=== PATIENT | male | born 1945 | race Caucasian/White ===

== ENCOUNTER 2016-08-03 17:51 | Emergency (ER) | payer MEDICARE, OTHER ==
[~2016-08-03] VITALS: Ht 175.3 cm; Wt 68.9 kg
--- NOTE | 2016-08-03 18:32 | NUR ---
DR BLISS AT THE BEDSIDE FOR EVAL AND EXAM.
--- NOTE | 2016-08-03 19:50 | NUR ---
Patient discharged to home in stable conditon. Written and verbal after care instructions given. Patient verbalizes understanding of instructions.
== END 2016-08-03 19:51 | disposition home or self-care (01) ==
LOC: ER 17:51
DX: S06.0X0A Concussion without loss of consciousness, initial encounter (principal); S20.219A Contusion of unspecified front wall of thorax, initial encounter; W21.07XA Struck by softball, initial encounter; Y93.64 Activity, baseball; Y92.9 Unspecified place or not applicable; Y99.9 Unspecified external cause status
CPT/HCPCS: 70450; 71101; A4217; A4663

== ENCOUNTER 2018-06-21 18:14 | Emergency (ER) | payer MEDICARE, OTHER ==
[~2018-06-21] VITALS: Ht 175.3 cm; Wt 65.8 kg
--- NOTE | 2018-06-21 19:07 | NUR ---
Received report from Liz, assumed care of pt., pt. resting in bed, bed in low position, NAD
[2018-06-21] MEDS ORDERED: AMOXICILLIN-CLAVUL 875-125MG TABLET PO ONE (19:30)
[2018-06-21] MEDS ORDERED: AMOXICILLIN-CLAVUL 875-125MG TABLET ONE (19:51)
--- NOTE | 2018-06-21 20:28 | NUR ---
Cleaned wound w/ NS, prepped w/ Benzoin tincture, steristrips applied, wrapped in kerlex and conforming bandage, CMS intact, instructions given for wound care,
--- NOTE | 2018-06-21 20:38 | NUR ---
Patient discharged to home in stable conditon. Written and verbal after care instructions given. Patient verbalizes understanding of instructions. Animal bite form completed and placed in chart, pt. discharged per MD order, d/c papers signed, all belongings w/ pt., ID band removed, ambulated off unit w/ steady gait, instructed not to drive, NAD
[2018-06-24] MEDS ORDERED: AMOX-427 PO (08:46)
[2018-06-24] MEDS ORDERED: SULF1TAB48 PO (08:46)
== END 2018-06-21 20:42 | disposition home or self-care (01) ==
LOC: ER 18:19
DX: S51.851A Open bite of right forearm, initial encounter (principal); W54.0XXA Bitten by dog, initial encounter; Y93.89 Activity, other specified; Y92.89 Other specified places as the place of occurrence of the external cause; Y99.8 Other external cause status
CPT/HCPCS: 73090; A4217; A4663

== ENCOUNTER 2018-06-23 07:30 | Emergency (ER) | payer MEDICARE, OTHER ==
[~2018-06-23] VITALS: Ht 175.3 cm; Wt 65.8 kg
[2018-06-23] MEDS ORDERED: METF-440 PO (07:42)
[2018-06-23] MEDS ORDERED: ATOR20TA PO (07:42)
[2018-06-23] MEDS ORDERED: VANCOMYCIN IV 1,000 MG in IV DEXTROSE 5% 250 ML IV ONE (08:00)
[2018-06-23] MEDS ORDERED: PIPERACILLIN SODIUM/TAZOBACTAM 3.375 G in IV DEXTROSE 5% 50 ML IV ONE (08:00)
[2018-06-23] MEDS ORDERED: PIPERACILLIN/TAZOBACTAM/D5W 50 ML IV ONE (08:03)
[2018-06-23] MEDS ORDERED: VANCOMYCIN IV 200 ML ONE (08:03)
--- NOTE | 2018-06-23 10:12 | NUR ---
IV removed. Catheter intact and site benign. Pressure and 4x4 gauze applied to site. No bleeding noted.
[2018-06-23 10:13] VITALS: BP 100/61
--- NOTE | 2018-06-23 10:14 | NUR ---
Patient discharged to home in stable conditon. Written and verbal after care instructions given. Patient verbalizes understanding of instructions.
[2018-06-24] MEDS ORDERED: SULF1TAB48 PO (08:46)
[2018-06-24] MEDS ORDERED: AMOX-427 PO (08:46)
== END 2018-06-23 10:14 | disposition home or self-care (01) ==
LOC: ER 07:30
DX: S50.861D Insect bite (nonvenomous) of right forearm, subsequent encounter (principal); L08.9 Local infection of the skin and subcutaneous tissue, unspecified; Z79.899 Other long term (current) drug therapy; W54.0XXD Bitten by dog, subsequent encounter
CPT/HCPCS: 96365; 96367; 99283; J2543; J3370; A4217; A4663

== ENCOUNTER 2021-12-29 21:37 | Emergency (ER) | payer MEDICARE, OTHER ==
[~2021-12-29] VITALS: Ht 175.3 cm; Wt 63.5 kg
[~2021-12-29 21:37] MED LIST: AMOX-427 PO; AMOX-430 PO; ATOR20TA PO; METF-440 PO; SULF1TAB48 PO
[2021-12-29] MEDS ORDERED: LIDOCAINE HCL 2% 20 ML VIAL ONE (23:23)
--- NOTE | 2021-12-29 23:25 | NUR ---
Seen and examined by Dr. Ruff. Currently treating L perez wound. VSS
[2021-12-29] MEDS ORDERED: LIDOCAINE HCL 2% 20 ML VIAL TP ONE (23:30)
--- NOTE | 2021-12-30 | NUR ---
Patient discharged to home in stable condition. Written and verbal after care instructions given. Patient verbalizes understanding of instructions. Stressed follow up or return to ER for worsening s/s.
[2021-12-30 00:02] VITALS: BP 132/78
== END 2021-12-30 00:03 | disposition home or self-care (01) ==
LOC: ER 21:51
DX: S81.812A Laceration without foreign body, left lower leg, initial encounter (principal); X58.XXXA Exposure to other specified factors, initial encounter; Y93.64 Activity, baseball; Y92.320 Baseball field as the place of occurrence of the external cause; E11.9 Type 2 diabetes mellitus without complications; Z79.84 Long term (current) use of oral hypoglycemic drugs; E78.5 Hyperlipidemia, unspecified; Z79.899 Other long term (current) drug therapy
CPT/HCPCS: 99282; 12002; J3490; A4663